=== PATIENT | female | born 1930 | race Caucasian/White ===

== ENCOUNTER 2019-08-11 08:40 | Day surgery (SDC) | payer MEDICARE, BC ==
[~2019-08-11 08:40] MED LIST: Sodium Chloride 0.9% 10 ML SDV IV PRN; Sodium Chloride 0.9% 10 ML Syringe FLUSH PRN; Sodium Chloride 0.9% 2.5 ML Syringe FLUSH PRN; ceFAZolin 1 GM in Premix Bag 1 BAG IV ONE
[2019-08-11] MEDS ORDERED: Bupivacaine 0.25% 10 ML SDV ONE (09:58)
[2019-08-11] MEDS ORDERED: Methylene Blue 50 MG/10 ML Ampule ONE (09:58)
[2019-08-11] MEDS ORDERED: Midazolam 1 MG/ML 2 ML SDV ONE (10:03)
[2019-08-11] MEDS ORDERED: Propofol 200 MG/20 ML SDV ONE (10:03)
[2019-08-11] MEDS ORDERED: fentaNYL 250 MCG/5 ML SDV ONE (10:03)
[2019-08-11] MEDS ORDERED: Glycopyrrolate 0.2 MG/ML SDV ONE (10:04)
[2019-08-11] MEDS ORDERED: Dexamethasone 4 MG/ML 5 ML MDV ONE (10:04)
[2019-08-11] MEDS ORDERED: Ketorolac 30 MG/ML SDV ONE (10:04)
[2019-08-11] MEDS ORDERED: Rocuronium 100 MG/10 ML Syringe ONE (10:04)
[2019-08-11] MEDS ORDERED: Ondansetron 4 MG/2 ML SDV ONE (10:04)
[2019-08-11] MEDS ORDERED: Lidocaine 2% 5 ML SDV ONE (10:04)
[2019-08-11] MEDS ORDERED: Sugammadex Sodium 200 MG/2 ML VIAL ONE (10:07)
[2019-08-11 10:11] LABS: CARBON DIOXIDE,CO2 24.6 mmol/L (21.0-32.0); POTASSIUM,K 3.7 mmol/L (3.5-5.1)
--- NOTE | 2019-08-11 10:14 | PCM.PREANE ---
Preanesthetic Assessment - Anesthesia/Transfusion/Family Hx Anesthesia History: Prior Anesthesia Without Reaction Family History of Anesthesia Reaction: No Transfusion History: Prior Transfusion Without Reaction - Review of Systems General: No Symptoms Pulmonary: No Symptoms Cardiovascular: No Symptoms Gastrointestinal: No Symptoms Neurological: No Symptoms Other: Reports: None - Physical Assessment Height: 5 ft Weight: 62.142 kg ASA Class: 2 Mental Status: Alert & Oriented x3 Airway Class: Mallampati = 2 Dentition: Reports: Dentures, Partial ROM/Head Extension: Full Lungs: Clear to Auscultation, Normal Respiratory Effort Cardiovascular: Regular Rate, Regular Rhythm - Lab Values: Laboratory Last Values WBC 7.95 K/uL (4.0-11.0) 08/11/19 09:34 RBC 4.83 M/uL (4.30-5.90) 08/11/19 09:34 Hgb 14.6 g/dL (12.0-16.0) 08/11/19 09:34 Hct 42.7 % (36.0-46.0) 08/11/19 09:34 MCV 88.4 fL (80.0-98.0) 08/11/19 09:34 MCH 30.2 pg (27.0-32.0) 08/11/19 09:34 MCHC 34.2 g/dL (31.0-37.0) 08/11/19 09:34 RDW Std Deviation 44.4 fl (28.0-62.0) 08/11/19 09:34 RDW Coeff of Mario 14 % (11.0-15.0) 08/11/19 09:34 Plt Count 268 K/uL (150-400) 08/11/19 09:34 MPV 10.10 fL (7.40-12.00) 08/11/19 09:34 Nucleated RBC % 0.0 /100WBC 08/11/19 09:34 Nucleated RBCs # 0 K/uL 08/11/19 09:34 - Allergies Allergies/Adverse Reactions: Allergies Allergy/AdvReac Type Severity Reaction Status Date / Time No Known Allergies Allergy Verified 08/04/19 10:52 - Blood Blood Available: No - Anesthesia Plan Pre-Op Medication Ordered: None - Acknowledgements Anesthesia Type Planned: General Anesthesia Pt an Appropriate Candidate for the Planned Anesthesia: Yes Alternatives and Risks of Anesthesia Discussed w Pt/Guardian: Yes Pt/Guardian Understands and Agrees with Anesthesia Plan: Yes PreAnesthesia Questionnaire HEENT History: Reports: Cataract, Macular Degeneration Cardiovascular History: Reports: High Cholesterol, Hypertension SPOUT TENDER History: Reports: Endocrine/Metabolic History: Reports: Hypothyroidism, Osteopenia Other Endocrine/Metabolic History: hx of osteopenia- was treated and "numbers have come up" Hematologic History: Reports: Blood Transfusion(s) Oncologic (Cancer) History: Reports: Basal Cell Carcinoma Other Oncologic History: removed from forehead x3 by cryotherapy - Past Surgical History HEENT Surgical History: Reports: Cataract Surgery Female Surgical History: Reports: Hysterectomy Dermatological Surgical History: Reports: Skin Biopsy - SUBSTANCE USE Smoking Status *Q: Never Smoker Recreational Drug Use History: No - HOME MEDS Home Medications: Home Meds Aspirin [Adult Low Dose Aspirin EC] 81 mg PO DAILY 08/04/19 [History] Calcium Carbonate/Vitamin D3 [Calcium 600 + Vit D 200] 1 tab PO DAILY 08/04/19 [ History] Carboxymethylcellulose Sodium [Refresh Tears] 1 drop EYEBOTH BID 08/04/19 [ History] Fish Oil/Borage/Flax/Om3,6,9 1 [Boscobel 3-6-9 1,200 mg Softgel] 1 tab PO DAILY [History] Levothyroxine 75 mcg PO QAM 08/04/19 [History] Lutein/Min/Vit C/Vit E Acetate [Ocuvite Lutein] 1 tab PO DAILY 08/04/19 [History ] Melatonin/Pyridoxine HCl (B6) [Melatonin 3 mg Tablet] 3 mg PO BEDTIME 08/04/19 [ History] Mineral Oil/Petrolatum,White [Genteal Pm Ointment] 1 applic EYEBOTH BEDTIME [History] Multivitamin [One Daily Multivitamin] 1 tab PO DAILY 08/04/19 [History] amLODIPine [Norvasc] 2.5 mg PO DAILY 08/04/19 [History] - CURRENT (IN HOUSE) MEDS Current Meds: Current Medications Sodium Chloride (Saline Flush) 10 ml FLUSH ASDIRECTED PRN PRN Reason: Keep Vein Open Sodium Chloride (Saline Flush) 2.5 ml FLUSH ASDIRECTED PRN PRN Reason: Keep Vein Open Sodium Chloride (Normal Saline) 10 ml IV ASDIRECTED PRN PRN Reason: IV Use Discontinued Medications Bupivacaine HCl (Sensorcaine-Mpf 0.25%) Confirm Administered Dose 20 ml .ROUTE .ST-MED ONE Stop: 08/11/19 09:59 Dexamethasone (Dexamethasone) Confirm Administered Dose 20 mg .ROUTE .ST-MED ONE Stop: 08/11/19 10:05 Fentanyl (Sublimaze) Confirm Administered Dose 250 mcg .ROUTE .STK-MED ONE Stop: 08/11/19 10:04 Glycopyrrolate (Robinul) Confirm Administered Dose 0.2 mg .ROUTE .ST-MED ONE Stop: 08/11/19 10:05 Cefazolin Sodium/Dextrose 1 gm (/ Premix) 50 mls @ 100 mls/hr IV ONETIME ONE Stop: 08/11/19 05:29 Ketorolac Tromethamine (Toradol) Confirm Administered Dose 30 mg .ROUTE .STK- MED ONE Stop: 08/11/19 10:05 Lidocaine (Xylocaine-Mpf 2%) Confirm Administered Dose 5 ml .ROUTE .ST-MED ONE Stop: 08/11/19 10:05 Methylene Blue (Provayblue) Confirm Administered Dose 50 mg .ROUTE .ST-MED ONE Stop: 08/11/19 09:59 Midazolam HCl (Versed 1 Mg/Ml) Confirm Administered Dose 2 mg .ROUTE .ST-MED ONE Stop: 08/11/19 10:04 Ondansetron HCl (Zofran) Confirm Administered Dose 4 mg .ROUTE .ST-MED ONE Stop: 08/11/19 10:05 Propofol (Diprivan 20 Ml) Confirm Administered Dose 200 mg .ROUTE .ST-MED ONE Stop: 08/11/19 10:04 Rocuronium [place] (Zemuron) Confirm Administered Dose 100 mg .ROUTE .ST-MED ONE Stop: 08/11/19 10:05 Sugammadex Sodium (Bridion) Confirm Administered Dose 200 mg .ROUTE .ST-MED ONE Stop: 08/11/19 10:08
[2019-08-11] MEDS ORDERED: Sodium Chloride 0.9% 20 ML ONE (10:17)
[2019-08-11] MEDS ORDERED: ceFAZolin 1 GM Vial ONE (10:17)
[2019-08-11] MEDS ORDERED: Lactated Ringers 1,000 ML IV SCH (10:45)
[2019-08-11] MEDS ORDERED: fentaNYL 100 MCG/2 ML SDV IVPUSH PRN (11:20)
--- NOTE | 2019-08-11 11:52 | PCM.OPNOTE ---
- General Post-Op/Procedure Note Date of Surgery/Procedure: 08/11/19 Operative Procedure(s): Operative laparoscopy, pelvic washings, right oophorectomy Findings: ~4 cm right ovarian cyst, simple in nature Normal appearing left ovary Pre Op Diagnosis: Right ovarian cyst Post-Op Diagnosis: Same Anesthesia Technique: General ET Tube Primary Surgeon: Karen Hernandez [employer] Clerk: Lexy Winston Pathology: pelvic washings, right ovarian cyst aspirate, right ovary Fluid Replacement, Intraop: 600 EBL in mLs: 10 Complications: none known Condition: Stable Free Text/Narrative:: Dictation [id number]
--- NOTE | 2019-08-11 12:11 | PCM.POSTAN ---
POST ANESTHESIA ASSESSMENT - MENTAL STATUS Mental Status: Alert, Oriented - VITAL SIGNS Vital Signs: Last Vital Signs Temp 97.9 F 08/11/19 11:43 Pulse 65 08/11/19 12:03 Resp 13 08/11/19 12:03 BP 139/67 08/11/19 12:03 Pulse Ox 97 08/11/19 12:03 - RESPIRATORY Respiratory Status: Respiratory Rate WNL, Airway Patent, O2 Saturation Stable - CARDIOVASCULAR CV Status: Pulse Rate WNL, Blood Pressure Stable - GASTROINTESTINAL GI Status: No Symptoms - POST OP HYDRATION Hydration Status: Adequate & Stable
--- NOTE | 2019-08-11 14:53 | PCM48HPAN ---
Post Anesthesia Note - EVALUATION WITHIN 48HRS OF ANESTHETIC Vital Signs in Normal Range: Yes Patient Participated in Evaluation: Yes Respiratory Function Stable: Yes Airway Patent: Yes Cardiovascular Function Stable: Yes Hydration Status Stable: Yes Pain Control Satisfactory: Yes Nausea and Vomiting Control Satisfactory: Yes Mental Status Recovered: Yes Vital Signs: Last Vital Signs Temp 96.6 F 08/11/19 12:10 Pulse 68 08/11/19 13:00 Resp 15 08/11/19 13:00 BP 125/65 08/11/19 13:00 Pulse Ox 97 08/11/19 13:00
--- NOTE | 2019-08-11 15:07 | OR ---
SURGEON: Karen Hernandez M.D. DATE OF PROCEDURE: 08/11/2019 PREOPERATIVE DIAGNOSIS: Right ovarian cyst, complex. POSTOPERATIVE DIAGNOSIS: Right ovarian cyst, complex. PROCEDURES: Operative laparoscopy with pelvic washings, right oophorectomy. PRIMARY SURGEON: Karen Hernandez MD. COMPENSATION ASSOCIATE: Frederic Winston. ANESTHESIA: General anesthesia. FLUIDS: 600 mL of crystalloid. ESTIMATED BLOOD LOSS: 10 mL. COMPLICATIONS: None known. FINDINGS: Approximately 4 to 5 cm right ovarian cyst with clear aspirate. Normal- appearing left postmenopausal ovary. DISPOSITION: The patient to PACU in stable condition. PROCEDURE DETAILS: Tamar is an 89-year-old female who had incidental finding of a complex right ovarian cyst along her right side when evaluated last year. She is asymptomatic from this. Her CA-125 was normal, and given that it was just shy of 5 cm, felt that we could observe this conservatively. In the interval, she has had this imaged again and it was found to be slightly the same sized to marginally larger, and given the persistence, the patient asked to be re-evaluated. She is feeling strongly that she would like this surgically removed as it causes her worry. She has been reassured by findings thus far that it is overall stable in size and CA-125 is normal. Nonetheless, the finding itself and the fact that it is persistent to slightly larger is concerning for her, and she prefers surgical intervention. Risks of procedure have been discussed with her and her daughter. Proper consent obtained. The patient was taken to the operating room. She underwent general endotracheal anesthesia. Was placed in modified dorsal lithotomy position. Was prepped and draped in usual sterile fashion. Bladder was drained. SCDs to lower extremities. Received 1 g Ancef prophylactically. Time-out was performed. A sponge stick was introduced in the vagina. This patient has had previous hysterectomy. Gloves changed. Attention turned abdominally. Infraumbilically, 0.25% Marcaine was introduced. Please see nurse's notes for total amount of local dispensed during the procedure. A 5 mm infraumbilical midline sagittal incision was created. Anterior abdominal wall was tented upward. Veress needle was introduced. Saline hanging drop test was performed. Pneumoperitoneum was achieved. Veress needle was removed. A 5 mm trocar was introduced, with laparoscope able to confirm, peritoneal contents being identified. A left lower quadrant 12 mm trocar and a right lower quadrant 5 mm trocar were now introduced under direct visualization after prepping these regions with 0.25% Marcaine, creating appropriate incisions. The bowel was now mobilized away from the pelvis. The patient was placed in Trendelenburg positioning. The right ovary with cyst was able to be identified. It was overall fairly mobile. The ovary was grasped, and using LigaSure, an oophorectomy was performed. Was able to see the ureter peristalsing below the level of the operative field. An Endobag was now introduced. The ovary cyst was now introduced in the Endobag. Endobag was brought up through the left lower quadrant port. The cyst was now aspirated using a needle aspirator and approximately 40 mL of clear fluid was able to be returned to be sent to pathology for further analysis. The Endobag with the ovary in it was now removed through this left lower quadrant site. Trocar was reintroduced. Pelvic washings had been performed. The operative field was inspected and found to be hemostatic. The left ovary was inspected and it appeared normal, however, it was fairly adhesed to the left pelvic sidewall given the previous hysterectomy. Therefore, photograph was taken. Relief pressure was decreased to 5 mm. Operative sites were once again inspected, found to be hemostatic. Pelvis was once again copiously irrigated, suction dried. Relief pressure increased once again to 13 mm and was able to remove trocars under direct visualization followed by laparoscope and infraumbilical trocar releasing as much of the pneumoperitoneum as possible. The skin edges were reapproximated using 4-0 Monocryl in subcuticular fashion. Sponge stick was removed from the vagina. Sponge, instrument, and needle count was correct x2. The patient has tolerated the procedure well overall. She will go to PACU in stable condition, specimens to pathology. YOUNG / MAKENNA /[id number]
== END 2019-08-11 13:25 | disposition home or self-care (01) ==
LOC: MW.SDS 08:40
PROVIDERS: ATTEND Obstetrics & Gynecology
DX: D27.0 Benign neoplasm of right ovary (principal); I10 Essential (primary) hypertension; E78.00 Pure hypercholesterolemia, unspecified; E03.9 Hypothyroidism, unspecified; Z79.82 Long term (current) use of aspirin; Z79.51 Long term (current) use of inhaled steroids; Z79.899 Other long term (current) drug therapy
CPT/HCPCS: 36415; 58661; 80048; 85027; J0690; J1100; J1885; J2001; J2250; J2405; J2704; J3010; J3490; J7120; 88104; 88307